=== PATIENT | female | born 1945 | race African-American/Black ===

== ENCOUNTER 2021-03-23 08:24 | Emergency (ER) | payer MEDICARE, SELFPAY ==
[2021-03-23] VITALS (11 sets, daily range): BP systolic 111–155; BP diastolic 62–86; PULSE 80–99; RESP 15–26; TEMP 36.6; O2SAT 99–100
--- NOTE | ~2021-03-23 | CT_ITS ---
EXAMINATION: CT cervical spine wo con DATE: 03/23/2021 09:42 INDICATION: Neck injury. TECHNIQUE: Computed tomography (CT) of the cervical spine was performed without intravenous contrast. Automated exposure control and iterative reconstruction technique were employed. The dose-length pro duct was 145.40 mGy-cm. COMPARISON: None FINDINGS: There is mild kyphosis of cervical spine. Vertebral body heights are normal. There is moder ately decreased disc height from C3-C4 through C6-C7. The following disc levels are specifically disc ussed: C2-C3: There is mild bilateral uncovertebral joint osteoarthritis. There is severe bilateral facet matthieu int osteoarthritis. There is moderate right and mild left neural foraminal stenosis. There is mild ce ntral canal stenosis. C3-C4: There is severe bilateral uncovertebral joint osteoarthritis. There is moderate left facet misty nt osteoarthritis. There is mild bilateral neural foraminal stenosis. There is mild central canal alexandra nosis. C4-C5: There is severe bilateral uncovertebral joint osteoarthritis. There is severe left facet joint osteoarthritis. There is moderate right and mild left neural foraminal stenosis. There is mild centr al canal stenosis. C5-C6: There is moderate right and severe left uncovertebral joint osteoarthritis. There is mild bila teral facet joint osteoarthritis. There is mild bilateral neural foraminal stenosis. There is mild ce ntral canal stenosis. C6-C7: There is severe bilateral uncovertebral joint osteoarthritis. There is severe bilateral facet joint osteoarthritis. There is mild bilateral neural foraminal stenosis. There is mild central canal stenosis. C7-T1: There is no uncovertebral joint osteoarthritis. There is mild bilateral facet joint osteoarthr itis. There is no neural foraminal stenosis. There is no central canal stenosis. IMPRESSION: 1. No fracture. 2. Moderate cervical spondylosis. Reviewed, dictated and finalized at location A.
--- NOTE | ~2021-03-23 | CT_ITS ---
EXAMINATION: CT brain wo con DATE: 03/23/2021 09:42 INDICATION: Head injury. TECHNIQUE: Computed tomography (CT) of the head was performed without intravenous contrast. The mA wa s adjusted according to patient size. Iterative reconstruction technique was employed. The dose-lengt h product was 605.33 mGy-cm. COMPARISON: None FINDINGS: There are scattered areas of low attenuation in the cerebral white matter, which is within normal limits for the patient's age. There is no intracranial hemorrhage, acute infarction, or abnorm al intracranial mass lesion. The ventricles are normal in size. There is mild mucosal thickening in t he ethmoid sinuses. The orbits are normal. The mastoid air cells are normal. IMPRESSION: 1. Normal aging brain. Reviewed, dictated and finalized at location A. IMPRESSION: 1. Normal aging brain.
--- NOTE | ~2021-03-23 | XR_ITS ---
EXAMINATION: XR shoulder RT min 2V DATE: 03/23/2021 09:18 INDICATION: Right shoulder pain. TECHNIQUE: 4 views of right shoulder were obtained. COMPARISON: None. FINDINGS: There is superior subluxation of humeral head with narrowing of the subacromial space, cons istent with rotator cuff tear. No fracture. There is severe osteoarthritis of glenohumeral joint and acromioclavicular joint. IMPRESSION: 1. Polyarticular osteoarthritis. 2. Right rotator cuff tear. Reviewed, dictated and finalized at location A.
--- NOTE | ~2021-03-23 | XR_ITS ---
EXAMINATION: XR chest 1V portable DATE: 03/23/2021 09:20 INDICATION: Weakness. Fall. TECHNIQUE: A single frontal view of the chest was obtained. COMPARISON: None. FINDINGS: The chest demonstrates clear lungs without pneumonia, pleural effusion, or pneumothorax. Th e heart size is normal. IMPRESSION: 1. No acute cardiopulmonary disease. Reviewed, dictated and finalized at location A.
--- NOTE | 2021-03-23 09:04 | ECG_ITS ---
Measurements Intervals Roberts Rate: 78 P: 57 CA: 148 QRS: -8 QRSD: 89 T: 31 QT: 367 QTc: 420 Interpretive Statements SINUS RHYTHM BASELINE ARTIFACT- I, II, AVR NORMAL ECG Electronically Signed On 03-23-2021 12:57:40 CDT by Nguyễn Bass D.O.
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
--- NOTE | 2021-03-23 09:38 | PC.NURSE ---
Pt to CT via stretcher at this time.
[2021-03-23 09:42] LABS: Basophils Percent Auto 0.3 % (0.2-1.2); Eosinophils Percent Auto 0.2 % (0-4.4); Hemoglobin 10.5 g/dL (12.0-15.0); Immature Granulocyte Absolute 0.02 K/mm3 (0.00-0.031); Immature Granulocyte Percent A 0.3 % (0-0.5); Lymphocytes Absolute Auto 0.65 K/mm3 (0.9-3.2); Lymphocytes Percent Auto 9.8 % (18.3-44.2); Mean Corpuscular HGB Conc 30.9 g/dl (32-36); Mean Corpuscular Hemoglobin 28.6 pg (26-34); Mean Corpuscular Volume 92.6 fl (80-100); Mean Platelet Volume 12.8 fl (7.4-10.4); Monocytes Absolute Auto 0.7 K/mm3 (0.1-0.6); Monocytes Percent Auto 10.2 % (2.6-8.5); Neutrophils Absolute Auto 5.2 K/mm3 (1.3-6.7); Neutrophils Percent Auto 79.2 % (45.5-73.1); Platelet Count Result 134 k/mm3 (150-375); Red Blood Count 3.67 M/mm3 (4.2-5.4); Red Cell Distribution Width 13.7 % (11.5-14.5); White Blood Count 6.6 K/mm3 (4.5-10.0)
[2021-03-23 09:45] LABS: Add Urine Microscopic? YES; Appearance Urine Clear (Clear); Bilirubin Urine Negative (Negative); Blood Urine 1+ (Negative); Color Urine Yellow (Yellow); Glucose Urine UA Negative (Negative); Ketones Urine Negative (Negative); Leukocyte Esterase Ur Negative LEU/UL (Negative); Mucus Urine Rare /lpf; Nitrate Urine Negative (Negative); Protein Urine 1+ mg/dL (Negative); RBC Urine 0-2 /hpf (0-2); Specific Grav Ur 1.014 (1.001-1.035); Squamous Epithelial Cell Urine Rare /hpf (Few); Urobilinogen Urine Negative mg/dL (<2.0); WBC Urine 0-3 /hpf
[2021-03-23 09:54] LABS: Alanine Aminotransferase 40 U/L (4-35); Alkaline Phosphatase 117 U/L (38-126); Anion Gap 8 mmol/L (8-16); Aspartate Amino Transferase 52 U/L (14-36); Bilirubin,Total 0.4 mg/dL (0.2-1.3); Blood Urea Nitrogen 15 mg/dL (7-17); Calcium 9.4 mg/dL (8.4-10.2); Carbon Dioxide 28 mmol/L (22-30); Chloride 105 mmol/L (98-107); Estimated CRCL calculation 44 ml/min; Estimated Glomerular Filt Rate > 60; Glucose 102 mg/dL (65-105); Potassium 3.6 mmol/L (3.4-5.0); Sodium 141 mmol/L (137-145)
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
--- NOTE | 2021-03-23 12:41 | PC.NURSE ---
Spoke to Jaret with [facility] ([phone]), planning to come for pt eval.
--- NOTE | 2021-03-23 13:29 | PC.NURSE ---
Jaret from [facility] here to speak w/ pt.
--- NOTE | 2021-03-23 14:01 | PC.NURSE ---
Jaret from [facility] currently speaking w/ Care Coordination to discuss POC for pt. Pt is alert an upright on her stretcher, eating a meal tray.
--- NOTE | 2021-03-23 16:49 | PCCCNOTE ---
Per Care Coordination: [facility] called and accepted pt. Nurse to call report to [phone] and fax orders to [phone]. Pt will go to room 314A. Care Coordination has tried to call daughter Mary and notify her of accepting facility with no answer. Message machine is full. Will continue to try and reach daughter.
--- NOTE | 2021-03-23 17:21 | PC.NURSE ---
Called [facility] and gave report to Jerrica RN, . Pt assigned to BED 314 A. Called daughter Mary Anna [phone] and gave update on pt status and admit to NH. Daughter states Its been an exhausting day. Thanks to you all for taking care of her, and for the update.
--- NOTE | 2021-03-23 18:01 | PC.NURSE ---
Called and ordered dinner tray for patient
--- NOTE | 2021-03-23 18:05 | PC.NURSE ---
[facility] declined return to long term [facility] accepted return to long term eta [phone] trip #[phone]
--- NOTE | 2021-03-23 18:11 | PC.NURSE ---
[facility] called, ordered tray for pt at this time.
--- NOTE | 2021-03-23 18:14 | PCCCNOTE ---
Care Coordination called daughter Mary, no answer. Unable to reach Mary to inform her of accepting facility.
--- NOTE | 2021-03-23 18:20 | PCCCNOTE ---
Clarification on first note made by Care Coordination: daughter Mary requested [facility] be contacted as a second choice if [facility] was unable to accept pt. Lizbeth moy [facility] is unable to accept at this time due to needing to verify insurance coverage. Pt will be transported to [facility] by ambulance.
--- NOTE | 2021-03-23 19:03 | PCCCNOTE ---
Left message with [facility] that pt would be going to [facility]. Attempted to call daughter at [phone], no answer.
--- NOTE | 2021-03-23 20:26 | PC.NURSE ---
called [facility] to request transport. declined
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
--- NOTE | 2021-03-23 22:15 | PC.NURSE ---
called [facility] for ETA update. ETA midnight
--- NOTE | 2021-03-23 22:34 | PC.NURSE ---
ems eta is midnight.
--- NOTE | 2021-03-24 00:06 | PC.NURSE ---
called [facility] for ETA update. ETA [phone].
--- NOTE | 2021-03-24 00:54 | PC.NURSE ---
[facility] here.
== END 2021-03-24 01:09 ==
PROVIDERS: Emergency Provider Emergency Medicine; PCP Emergency Medicine
DX: Z60.8 Other problems related to social environment (principal); S46.011A Strain of muscle(s) and tendon(s) of the rotator cuff of right shoulder, initial encounter; M47.812 Spondylosis without myelopathy or radiculopathy, cervical region; M19.011 Primary osteoarthritis, right shoulder; W13.4XXA Fall from, out of or through window, initial encounter
CPT/HCPCS: 36415; 70450; 71045; 72125; 73030; 80053; 81001; 85025; 93005; 99284